=== PATIENT | male | born 1990 | race Caucasian/White ===

== ENCOUNTER 2017-08-03 17:07 | Emergency (ER) | payer MEDICAID ==
[2017-08-03 17:13] VITALS: BP 129/82; TEMP 97.7
[2017-08-03 17:31] VITALS: RESP 16
[2017-08-03] MEDS ORDERED: LORAZEPAM 1 MG PREPACK#4 BTL TAKEHOME ONE (17:41)
--- NOTE | 2017-08-03 17:41 | EDPHY ---
H & P Stated Complaint: Throat swelling Time Seen by Provider: 08/03/17 17:34 HPI/ROS: CHIEF COMPLAINT: Throat swelling HISTORY OF PRESENT ILLNESS: The patient is a 27-year-old man with a history of anxiety who comes to the emergency department stating that for the last 2 nights when he is asleep and woke up with a feeling that his throat was swollen and he cannot breathe. No stridor. No chest pain. No palpitations. He does have a history of heartburn and takes Nexium. He does nice having any heartburn symptoms. He denies shortness of breath. He reports history of bronchitis 3 weeks ago that is now resolved. He has since quit smoking. He has not had a sore throat or cough. No runny nose. REVIEW OF SYSTEMS: Constitutional: denies: chills, fever, recent illness, recent injury EENTM: See HPI denies: blurred vision, double vision, nose congestion Respiratory: denies: cough, shortness of breath Cardiac: denies: chest pain, irregular heart rate, lightheadedness, palpitations Gastrointestinal/Abdominal: denies: abdominal pain, diarrhea, nausea, vomiting, blood streaked stools Genitourinary: denies: dysuria, frequency, hematuria, pain Musculoskeletal: denies: joint pain, muscle pain Skin: denies: lesions, rash, jaundice, bruising Neurological: denies: headache, numbness, paresthesia, tingling, dizziness, weakness Hematologic/Lymphatic: denies: blood clots, easy bleeding, easy bruising Immunologic/allergic: denies: HIV/AIDS, transplant EXAM: GENERAL: Well-appearing, well-nourished and in no acute distress. HEAD: Atraumatic, normocephalic. EYES: Pupils equal round and reactive to light, extraocular movements intact, sclera anicteric, conjunctiva are normal. ENT: TMs normal, nares patent, oropharynx clear without exudates. Moist mucous membranes. NECK: Normal range of motion, supple without lymphadenopathy or JVD. LUNGS: Breath sounds clear to auscultation bilaterally and equal. No wheezes rales or rhonchi. HEART: Regular rate and rhythm without murmurs, rubs or gallops. ABDOMEN: Soft, nontender, normoactive bowel sounds. No guarding, no rebound. No masses appreciated. BACK: No CVA tenderness, no spinal tenderness, step-offs or deformities EXTREMITIES: Normal range of motion, no pitting or edema. No clubbing or cyanosis. NEUROLOGICAL: Cranial nerves II through XII grossly intact. Normal speech, normal gait. 5/5 strength, normal movement in all extremities, normal sensation PSYCH: Normal mood, normal affect. SKIN: Warm, dry, normal turgor, no visible rashes or lesions. Source: Patient Exam Limitations: No limitations - Personal History Current Tetanus Diphtheria and Acellular Pertussis (TDAP): Yes - Medical/Surgical History Hx Asthma: No Hx Chronic Respiratory Disease: No Hx Diabetes: No Hx Cardiac Disease: No Hx Renal Disease: No Hx Cirrhosis: No Other PMH: REFLUX, APPY - Family History Significant Family History: No pertinent family hx - Social History Smoking Status: Former smoker Alcohol Use: Sober Drug Use: None Constitutional: Initial Vital Signs Temperature (C) 36.5 C 08/03/17 17:11 Heart Rate 123 H 08/03/17 17:11 Respiratory Rate 22 H 08/03/17 17:11 Blood Pressure 129/82 H 08/03/17 17:11 O2 Sat (%) 97 08/03/17 17:11 O2 Delivery Mode Room Air Allergies/Adverse Reactions: No Known Allergies Allergy (Unverified 08/03/17 17:09) Home Medications: Medication Instructions Recorded Nexium 08/03/17 Medical Decision Making ED Course/Re-evaluation: The patient has a normal exam including pharynx and normal vital signs and is in no distress. No stridor or wheezing. We discussed options. He does not think it is his heart or reflux. He does have a history of anxiety and thinks that it may be a panic attack. I offered Ativan for him to try p.r.n. with warnings given. He is happy with this and declines further workup or testing at this time. I will give him follow up with ENT and we discussed indications for returning to the emergency department. Differential Diagnosis: Partial list of the Differential diagnosis considered include but were not limited to; panic attack, anxiety, pharyngitis, abscess, GERD and although unlikely based on the history and physical exam, I also considered CVA, acute coronary disease,. I discussed these differential diagnoses and the plan with the patient as well as the usual and expected course. The patient understands that the diagnosis is provisional and that in medicine we are not always correct and that further workup is often warranted. Usual and customary warnings were given. All of the patient's questions were answered. The patient was instructed to return to the emergency department should the symptoms at all worsen or return, otherwise to followup with the physician as we discussed. - Data Points Medications Given: Discontinued Medications Lorazepam (Ativan 1 Mg Prepack#4) 1 btl TAKEHOME EDNOW ONE Stop: 08/03/17 17:42 Last Admin: 08/03/17 17:55 Dose: 1 btl Departure - Departure Disposition: Home, Routine, Self-Care Clinical Impression: Anxiety about health Condition: Fair Instructions: Lorazepam (By mouth), Anxiety (ED) Additional Instructions: Take 1 tablet of Ativan as needed for anxiety. Do not drive or work while taking. Referrals: NONE *PRIMARY CARE P,. [Primary Care Provider] - As per Instructions Imtiaz Zacarias MD [Medical Doctor] - As per Instructions
[2017-08-03 18:06] VITALS: PULSE 88; O2SAT 97
== END 2017-08-03 17:58 | disposition home or self-care (01) ==
DX: F41.9 Anxiety disorder, unspecified (principal); Z87.891 Personal history of nicotine dependence

== ENCOUNTER 2018-06-19 16:42 | Emergency (ER) | payer OTHER ==
[2018-06-19] MEDS ORDERED: NS 1,000 ML IV ONE ×2 (16:43→17:33)
[2018-06-19] MEDS ORDERED: LORazepam 2 MG/ML INJ IVP ONE ×2 (16:44→19:05)
--- NOTE | 2018-06-19 16:47 | EDPHY ---
H & P Time Seen by Provider: 06/19/18 16:45 HPI/ROS: CHIEF COMPLAINT: Vomiting and anxiety attack HISTORY OF PRESENT ILLNESS: The patient is a 28-year-old man with a history of anxiety who reports that this morning he woke up nauseous and has vomited several times throughout the day. No diarrhea. No abdominal pain. He began to have a panic attack and feels short of breath and called EMS. EMS administered Zofran and Phenergan and albuterol. Patient's nausea has improved but he still feels a bit jittery and tachycardic after the albuterol. He was never hypoxic. No fever. No diarrhea. No urinary symptoms. He does have a history of appendectomy. Severity: Moderate Modifying factors: Improving with the EMS medication REVIEW OF SYSTEMS: Constitutional: denies: chills, fever, recent illness, recent injury EENTM: denies: blurred vision, double vision, nose congestion Respiratory: See HPI denies: cough Cardiac: denies: chest pain, irregular heart rate, lightheadedness, palpitations Gastrointestinal/Abdominal: See HPI denies: abdominal pain, diarrhea, blood streaked stools Genitourinary: denies: dysuria, frequency, hematuria, pain Musculoskeletal: denies: joint pain, muscle pain Skin: denies: lesions, rash, jaundice, bruising Neurological: denies: headache, numbness, paresthesia, tingling, dizziness, weakness Hematologic/Lymphatic: denies: blood clots, easy bleeding, easy bruising Immunologic/allergic: denies: HIV/AIDS, transplant 10 systems reviewed and negative except as noted EXAM: GENERAL: Well-appearing, somewhat anxious HEAD: Atraumatic, normocephalic. EYES: Pupils equal round and reactive to light, extraocular movements intact, sclera anicteric, conjunctiva are normal. ENT: TMs normal, nares patent, oropharynx clear without exudates. Moist mucous membranes. NECK: Normal range of motion, supple without lymphadenopathy or JVD. LUNGS: Breath sounds clear to auscultation bilaterally and equal. No wheezes rales or rhonchi. HEART: Regular rate and rhythm without murmurs, rubs or gallops. ABDOMEN: Soft, nontender, normoactive bowel sounds. No guarding, no rebound. No masses appreciated. BACK: No CVA tenderness, no spinal tenderness, step-offs or deformities EXTREMITIES: Normal range of motion, no pitting or edema. No clubbing or cyanosis. NEUROLOGICAL: Cranial nerves II through XII grossly intact. Normal speech, normal gait. 5/5 strength, normal movement in all extremities, normal sensation , normal reflexes PSYCH: Normal mood, normal affect. SKIN: Warm, dry, normal turgor, no visible rashes or lesions. Source: Patient, EMS Exam Limitations: No limitations - Medical/Surgical History Hx Asthma: No Hx Chronic Respiratory Disease: No Hx Diabetes: No Hx Cardiac Disease: No Hx Renal Disease: No Hx Cirrhosis: No Other PMH: REFLUX, APPY - Family History Significant Family History: No pertinent family hx - Social History Smoking Status: Former smoker Alcohol Use: Sober Drug Use: None Constitutional: Initial Vital Signs Temperature (C) 36.8 C 06/19/18 17:00 Heart Rate 96 06/19/18 17:00 Respiratory Rate 18 06/19/18 17:00 Blood Pressure 151/112 H 06/19/18 17:00 O2 Sat (%) 96 06/19/18 17:00 O2 Delivery Mode Room Air Allergies/Adverse Reactions: No Known Allergies Allergy (Unverified 06/19/18 17:03) Home Medications: Medication Instructions Recorded Citalopram 06/19/18 Medical Decision Making ED Course/Re-evaluation: Patient is no longer vomiting after receiving medications from EMS. He is oxygenating well. His abdominal exam is benign. 5:30 p.m. the patient is sleeping comfortably with stable vital signs. His heart rate is 102 while asleep. Clinically still looks dry. He has a dry tongue. I will hang 1/3 L of fluid and have him start taking p.o. Fluids. He no longer feels nauseous. He does not have any abdominal pain or tenderness. He is saturating 96% room air while asleep. 7:05 p.m. the patient is doing well. His vital signs are stable. He is asking for my anxiety medicine. His heart rate is 90. He does get a little anxious his heart rate comes up to 110 when I into the room. Abdomen feels great but he still feels anxious. I will give him another dose of Ativan. 7:30 p.m. the patient continues to feel well. He is eager to go home. Differential Diagnosis: Partial list of the Differential diagnosis considered include but were not limited to; gastroenteritis, food poisoning, and although unlikely based on the history and physical exam, I also considered obstruction, biliary disease, pancreatic disease, diverticulitis, volvulus. I discussed these differential diagnoses and the plan with the patient as well as the usual and expected course. The patient understands that the diagnosis is provisional and that in medicine we are not always correct and that further workup is often warranted. Usual and customary warnings were given. All of the patient's questions were answered. The patient was instructed to return to the emergency department should the symptoms at all worsen or return, otherwise to followup with the physician as we discussed. - Data Points Medications Given: Discontinued Medications Sodium Chloride (Ns) 1,000 mls @ 0 mls/hr IV EDNOW ONE; Wide Open PRN Reason: Protocol Stop: 06/19/18 16:44 Last Admin: 06/19/18 16:58 Dose: 1,000 mls Sodium Chloride (Ns) 1,000 mls @ 0 mls/hr IV EDNOW ONE; Wide Open PRN Reason: Protocol Stop: 06/19/18 17:34 Last Admin: 06/19/18 17:35 Dose: 1,000 mls Lorazepam (Ativan Injection) 1 mg IVP EDNOW ONE Stop: 06/19/18 16:45 Last Admin: 06/19/18 16:58 Dose: 1 mg Lorazepam (Ativan Injection) 1 mg IVP EDNOW ONE Stop: 06/19/18 19:06 Last Admin: 06/19/18 19:14 Dose: 1 mg Ondansetron HCl (Zofran Odt 4 Mg Prepack#2) 1 btl TAKEHOME EDNOW ONE Stop: 06/19/18 19:10 Last Admin: 06/19/18 19:38 Dose: 1 btl Departure - Departure Disposition: Home, Routine, Self-Care Clinical Impression: Anxiety Vomiting Qualifiers: Vomiting type: unspecified Vomiting Intractability: unspecified Nausea presence : with nausea Qualified Code(s): R11.2 - Nausea with vomiting, unspecified Condition: Fair Instructions: Ondansetron (By mouth), Acute Nausea and Vomiting (ED), Anxiety ( ED) Referrals: Patient,NotPresent [Unknown] - As per Instructions Sandee Barrett MD [[facility] Primary Care Provider] - 2-3 days, call for appt.
[2018-06-19] MEDS ORDERED: ONDANSETRON 4MG PREPACK#2 BTL TAKEHOME ONE (19:09)
[2018-06-19 19:20] VITALS: BP 134/74
== END 2018-06-19 19:41 | disposition home or self-care (01) ==
LOC: EDUNIT#
DX: R11.2 Nausea with vomiting, unspecified (principal); F41.9 Anxiety disorder, unspecified; E86.9 Volume depletion, unspecified
CPT/HCPCS: 96374; J2060